=== PATIENT | female | born 1995 | race American Indian/Alaskan Native ===

== ENCOUNTER 2019-02-17 08:36 | Inpatient (IN) | payer MEDICAID ==
[2019-02-17] MEDS ORDERED: MINERAL OIL PO PRN (09:22)
[2019-02-17] MEDS ORDERED: XYLOCAINE 2% INFILTRATI ONE (09:22)
[2019-02-17] MEDS ORDERED: BRETHINE IVP PRN (09:22)
[2019-02-17] MEDS ORDERED: SUBLIMAZE IV PRN (09:22)
[2019-02-17] MEDS ORDERED: BRETHINE SUB-Q PRN (09:22)
[2019-02-17 09:37] LABS: Hematocrit 36.6 % (30.3-42.9); Hemoglobin 11.9 gm/dl (10.1-14.3); Mean Corpuscular HGB Conc 32 % (30-34); Mean Corpuscular Volume 75 fl (79-97); Platelet Count 302 K/mm3 (140-440); Red Cell Distribution Width 15.4 % (13.2-15.2)
[2019-02-17] MEDS ORDERED: PITOCin/NS 20 UNIT/1000ML DRIP 20 UNITS/1,000 ML BAG IV SCH (10:00)
[2019-02-17] MEDS ORDERED: PITOCin/NS 30 UNIT/500ML 30 UNITS/500 ML BAG IV SCH (10:00)
--- NOTE | 2019-02-17 10:08 | History and Physical Report ---
History of Present Illness Date of examination: 02/17/19 Date of admission: 02/17/19 Chief complaint: Leaking fluid, contractions History of present illness: 23yo G 1 P 0 at 38 weeks 5 days here with c/o leaking clear fluids since 8:00am and UCs q2mins. She reports +FMs. She is a [employer] pt who initiated care at 9 weeks gestation. Her course has been complicated by abnormal pap smear (s/p COLPO), vit D deficiency (was supplemented), and anemia (on iron therapy). LABS: Opos, Antibody Screen neg, Pap Smear LGSIL/+HR HPV, RI, VDRL NR, HBsAg ne g, HIV neg, Diabetes Screen 102, GC/CT/Trich neg, GBS neg. 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 denies: smoking, alcohol abuse, prescription drug abuse, IV drug use - Obstetrical History Expected Date of Delivery: 02/26/19 Actual Gestation: 38 Week(s) 5 Day(s) : 1 Para: 0 Hx # Term Pregnancies: 0 Spontaneous Abortions: 0 Induced : 0 Number of Living Children: 0 Medications and Allergies Allergies Allergy/AdvReac Type Severity Reaction Status Date / Time No Known Allergies Allergy Unverified 02/17/19 09:22 Active Meds: Active Medications Butorphanol Tartrate (Stadol) 2 mg IV Q2H PRN PRN Reason: Pain , Severe (7-10) Ephedrine Sulfate (Ephedrine Sulfate) 10 mg IV Q2M PRN PRN Reason: Hypotension Fentanyl (Sublimaze) 100 mcg IV Q2H PRN PRN Reason: Labor Pain Oxytocin/Sodium Chloride (Pitocin/Ns 20 Unit/1000ml Drip) 20 units in 1,000 mls @ 125 mls/hr IV DIRECT CAT Oxytocin/Sodium Chloride (Pitocin/Ns 30 Unit/500ml) 30 units in 500 mls @ 0 mls/hr IV TITR CAT; Protocol Lactated Ringer's (Lactated Ringers) 1,000 mls @ 125 mls/hr IV DIRECT CAT Lidocaine (Xylocaine 2%) 20 ml INFILTRATI ONCE ONE Stop: 02/17/19 09:23 Mineral Oil (Mineral Oil) 30 ml PO QHS PRN PRN Reason: Constipation Terbutaline Sulfate (Brethine) 0.25 mg SUB-Q ONCE PRN PRN Reason: Hyperstimulation/Hypertonicity Terbutaline Sulfate (Brethine) 0.25 mg IVP ONCE PRN PRN Reason: Hyperstimulation/Hypertonicity Review of Systems All systems: negative - Vital Signs Vital signs: Vital Signs Pulse BP 88 124/73 02/17/19 08:57 02/17/19 08:57 Temp Pulse Resp BP Pulse Ox 97.6 F 88 124/73 02/17/19 09:10 02/17/19 08:57 02/17/19 08:57 - Obstetrical FHR: auscultation normal, category 1 FHR comments: baseline 130, moderate variability, 15x15 accels, no decels Uterine Contraction Monitor Mode: External Cervical Dilatation: 2.5 (per RN) Cervical Effacement Percentage: 50 (per RN) station: -1 (per RN) Uterine Contraction Frequency (min): 2-4 Uterine Contraction Pattern: Regular Results Result Diagrams: 02/17/19 08:15 Abnormal lab results 02/17/19 Range/Units 08:15 MCV 75 L (79-97) fl MCH 24 L (28-32) pg RDW 15.4 H (13.2-15.2) % All other labs normal. Assessment and Plan - Patient Problems (1) 38 weeks gestation of Current Visit: Yes Status: Acute (2) Spontaneous rupture of amniotic membranes Current Visit: Yes Status: Acute (3) Active labor at term Current Visit: Yes Status: Acute Plan to address problem: Admit to L&D with routine labor orders Start Oxytocin for labor augmentation, if indicated Anticipate vaginal delivery
[2019-02-17] MEDS: LACTATED RINGERS 1,000 ML IV SCH ×2 (12:31→17:38)
[2019-02-17] MEDS: STADOL IV PRN ×2 (12:32→14:33)
[2019-02-17] MEDS ORDERED: NARCAN 2 MG/2 ML IV PRN (18:39)
[2019-02-17] MEDS ORDERED: SUBLIMAZE ONE (18:40)
[2019-02-17] MEDS ORDERED: MARCAINE 0.25% INFILTRATI ONE (18:57)
[2019-02-17] MEDS ORDERED: fentaNYL-BUPIV 2 MCG/ML-0.125% 200 MCG/100 ML BAG EPIDURAL SCH (19:00)
--- NOTE | 2019-02-17 19:21 | Anesthesia Consultation ---
Anesthesia Consult and Med Hx Date of service: 02/17/19 - Airway Anesthetic Teeth Evaluation: Good ROM Head & Neck: Adequate Mental/Hyoid Distance: Adequate Mallampati Class: Class II Intubation Access Assessment: Good - Pulmonary Exam CTA: Yes - Cardiac Exam Cardiac Exam: RRR - Pre-Operative Health Status ASA Pre-Surgery Classification: ASA2, Emergency Proposed Anesthetic Plan: Epidural - Pulmonary Hx Asthma: No - Cardiovascular System Hx Hypertension: No - Central Nervous System Hx Seizures: No Hx Psychiatric Problems: No - Endocrine Hx Renal Disease: No Hx Hypothyroidism: No Hx Hyperthyroidism: No - Hematic Hx Anemia: No Hx Sickle Cell Disease: No
--- NOTE | 2019-02-18 00:33 | Progress Note ---
Assessment and Plan - Patient Problems (1) 38 weeks gestation of Current Visit: Yes Status: Acute (2) Active labor at term Current Visit: Yes Status: Acute Plan to address problem: Continue current management Patient positioned to high-kern's to labor down Restart Oxytocin @ 1 mu/min for labor augmentation Anticipate vaginal delivery (3) Prolonged spontaneous rupture of membranes Current Visit: Yes Status: Acute Plan to address problem: 16 hours s/p SROM Increase in FHR baseline Oral maternal temperature 98.1 Start Ampicillin 2gm IV q6hr Subjective - Subjective Date of service: 02/18/19 Principal diagnosis: IUP @ 38 weeks; SROM Interval history: 23yo G 1 P 0 at 38 weeks 5 days here with c/o leaking clear fluids since 8:00am and UCs q2mins. She reports +FMs. She is a [employer] pt who initiated care at 9 weeks gestation. Her course has been complicated by abnormal pap smear (s/p COLPO), vit D deficiency (was supplemented), and anemia (on iron therapy). LABS: Opos, Antibody Screen neg, Pap Smear LGSIL/+HR HPV, RI, VDRL NR, HBsAg neg, HIV neg, Diabetes Screen 102, GC/CT/Trich neg, GBS neg. Patient reports: movement normal, other (reports satisfactory pain relief with epidural anesthesia), no new complaints Objective - Vital Signs Vital Signs: Vital Signs - 12hr 02/17/19 02/17/19 02/17/19 12:32 14:15 15:33 Temperature 97.9 F Pulse Rate Respiratory 18 14 Rate Blood Pressure O2 Sat by Pulse Oximetry 02/17/19 02/17/19 02/17/19 16:25 16:36 18:00 Temperature 97.9 F 97.0 F L Pulse Rate 77 Respiratory Rate Blood Pressure 137/78 O2 Sat by Pulse Oximetry 02/17/19 02/17/19 02/17/19 18:57 18:58 19:00 Temperature Pulse Rate 98 H 84 Respiratory Rate Blood Pressure 144/82 O2 Sat by Pulse 100 84 Oximetry 02/17/19 02/17/19 02/17/19 19:01 19:02 19:03 Temperature Pulse Rate 89 83 80 Respiratory Rate Blood Pressure 139/72 135/73 O2 Sat by Pulse 97 Oximetry 02/17/19 02/17/19 02/17/19 19:05 19:06 19:07 Temperature Pulse Rate 96 H 87 78 Respiratory Rate Blood Pressure 136/69 O2 Sat by Pulse 89 96 Oximetry 02/17/19 02/17/19 02/17/19 19:08 19:09 19:12 Temperature Pulse Rate 78 190 H 91 H Respiratory Rate Blood Pressure 154/76 159/84 131/62 O2 Sat by Pulse 95 Oximetry 02/17/19 02/17/19 02/17/19 19:13 19:15 19:17 Temperature Pulse Rate 75 83 94 H Respiratory Rate Blood Pressure 138/73 125/61 107/58 O2 Sat by Pulse 94 97 Oximetry 02/17/19 02/17/19 02/17/19 19:19 19:21 19:22 Temperature Pulse Rate 83 75 79 Respiratory Rate Blood Pressure 119/62 105/57 O2 Sat by Pulse 93 94 Oximetry 02/17/19 02/17/19 02/17/19 19:25 19:27 19:28 Temperature Pulse Rate 70 89 92 H Respiratory Rate Blood Pressure 152/85 O2 Sat by Pulse 94 100 Oximetry 02/17/19 02/17/19 02/17/19 19:29 19:31 19:32 Temperature Pulse Rate 100 H 103 H 110 H Respiratory Rate Blood Pressure 130/69 120/62 O2 Sat by Pulse 97 Oximetry 02/17/19 02/17/19 02/17/19 19:34 19:35 19:37 Temperature Pulse Rate 100 H 85 109 H Respiratory Rate Blood Pressure 133/74 123/64 O2 Sat by Pulse 99 Oximetry 02/17/19 02/17/19 02/17/19 19:38 19:39 19:41 Temperature Pulse Rate 122 H 72 66 Respiratory Rate Blood Pressure 144/68 131/68 126/65 O2 Sat by Pulse Oximetry 02/17/19 02/17/19 02/17/19 19:42 19:43 19:45 Temperature Pulse Rate 72 76 80 Respiratory Rate Blood Pressure 125/59 123/61 O2 Sat by Pulse 98 Oximetry 02/17/19 02/17/19 02/17/19 19:47 19:49 19:51 Temperature Pulse Rate 75 80 86 Respiratory Rate Blood Pressure 120/61 117/58 126/67 O2 Sat by Pulse 100 Oximetry 02/17/19 02/17/19 02/17/19 19:52 19:53 19:55 Temperature Pulse Rate 75 76 80 Respiratory Rate Blood Pressure 130/68 124/65 O2 Sat by Pulse 100 Oximetry 02/17/19 02/17/19 02/17/19 19:57 19:59 20:01 Temperature Pulse Rate 72 76 76 Respiratory Rate Blood Pressure 129/68 125/67 131/70 O2 Sat by Pulse 99 Oximetry 02/17/19 02/17/19 02/17/19 20:02 20:03 20:05 Temperature Pulse Rate 70 76 83 Respiratory Rate Blood Pressure 126/70 130/71 O2 Sat by Pulse 99 Oximetry 02/17/19 02/17/19 02/17/19 20:07 20:09 20:11 Temperature Pulse Rate 79 76 93 H Respiratory Rate Blood Pressure 129/69 131/71 134/75 O2 Sat by Pulse 100 Oximetry 02/17/19 02/17/19 02/17/19 20:12 20:13 20:16 Temperature Pulse Rate 82 99 H 100 H Respiratory Rate Blood Pressure 131/74 107/80 O2 Sat by Pulse 100 Oximetry 02/17/19 02/17/19 02/17/19 20:17 20:18 20:22 Temperature Pulse Rate 92 H 88 83 Respiratory Rate Blood Pressure 106/58 O2 Sat by Pulse 100 100 Oximetry 02/17/19 02/17/19 02/17/19 20:27 20:32 20:37 Temperature Pulse Rate 73 74 85 Respiratory Rate Blood Pressure O2 Sat by Pulse 100 100 100 Oximetry 02/17/19 02/17/19 02/17/19 20:42 20:47 20:52 Temperature Pulse Rate 77 71 79 Respiratory Rate Blood Pressure O2 Sat by Pulse 100 100 99 Oximetry 02/17/19 02/17/19 02/17/19 20:57 21:02 21:07 Temperature Pulse Rate 75 66 72 Respiratory Rate Blood Pressure O2 Sat by Pulse 100 100 100 Oximetry 02/17/19 02/17/19 02/17/19 21:12 21:14 21:17 Temperature Pulse Rate 69 90 70 Respiratory Rate Blood Pressure O2 Sat by Pulse 100 91 99 Oximetry 02/17/19 02/17/19 02/17/19 21:22 21:27 21:32 Temperature Pulse Rate 76 83 70 Respiratory Rate Blood Pressure O2 Sat by Pulse 100 100 100 Oximetry 08/05/19 08/05/19 08/05/19 21:37 21:42 21:43 Temperature Pulse Rate 74 76 74 Respiratory Rate Blood Pressure 114/67 O2 Sat by Pulse 98 100 Oximetry 02/17/19 02/17/19 02/17/19 21:47 21:52 21:57 Temperature Pulse Rate 72 94 H 84 Respiratory Rate Blood Pressure O2 Sat by Pulse 100 100 100 Oximetry 02/17/19 02/17/19 02/17/19 22:02 22:07 22:12 Temperature Pulse Rate 72 81 76 Respiratory Rate Blood Pressure O2 Sat by Pulse 99 99 99 Oximetry 02/17/19 02/17/19 02/17/19 22:13 22:17 22:22 Temperature Pulse Rate 78 76 81 Respiratory Rate Blood Pressure 112/64 O2 Sat by Pulse 100 99 Oximetry 02/17/19 02/17/19 02/17/19 22:27 22:32 22:37 Temperature Pulse Rate 80 77 73 Respiratory Rate Blood Pressure O2 Sat by Pulse 99 99 99 Oximetry 02/17/19 02/17/19 02/17/19 22:42 22:47 22:52 Temperature Pulse Rate 92 H 89 90 Respiratory Rate Blood Pressure 157/70 O2 Sat by Pulse 100 99 99 Oximetry 02/17/19 02/17/19 02/17/19 22:57 23:02 23:07 Temperature Pulse Rate 103 H 83 88 Respiratory Rate Blood Pressure O2 Sat by Pulse 100 99 99 Oximetry 02/17/19 02/17/19 02/17/19 23:12 23:17 23:22 Temperature Pulse Rate 83 87 97 H Respiratory Rate Blood Pressure 116/70 O2 Sat by Pulse 100 99 99 Oximetry 02/17/19 02/17/19 02/17/19 23:27 23:32 23:37 Temperature Pulse Rate 85 85 85 Respiratory Rate Blood Pressure O2 Sat by Pulse 99 100 100 Oximetry 02/17/19 02/17/19 02/17/19 23:43 23:48 23:51 Temperature Pulse Rate 87 92 H 88 Respiratory Rate Blood Pressure 126/76 O2 Sat by Pulse 100 99 Oximetry 02/17/19 02/18/19 02/18/19 23:56 00:01 00:06 Temperature Pulse Rate 86 95 H 103 H Respiratory Rate Blood Pressure O2 Sat by Pulse 99 100 100 Oximetry 02/18/19 02/18/19 02/18/19 00:11 00:16 00:21 Temperature Pulse Rate 96 H 90 88 Respiratory Rate Blood Pressure O2 Sat by Pulse 99 100 100 Oximetry 02/18/19 00:26 Temperature Pulse Rate 73 Respiratory Rate Blood Pressure O2 Sat by Pulse 100 Oximetry - Exam FHR: category 2 FHR comments: baseline 155, moderate variability, + accels, variable & occasional prolonged decel with pushing Cervical Dilatation: 10 Cervical Effacement Percentage: 100 station: +1 Uterine Contraction Pattern: Regular - Labs Labs: Abnormal Labs 02/17/19 08:15 MCV 75 L MCH 24 L RDW 15.4 H Laboratory Results - last 24 hr 02/17/19 02/17/19 02/17/19 08:15 08:15 08:15 WBC 8.6 RBC 4.90 Hgb 11.9 Hct 36.6 MCV 75 L MCH 24 L MCHC 32 RDW 15.4 H Plt Count 302 RPR Nonreactive Blood Type O POSITIVE Antibody Screen Negative
[2019-02-18] MEDS: AMPICILLIN/NS 2 GM/100 ML 2 GM/100 ML BAG IV SCH ×4 (01:21→18:03)
--- NOTE | 2019-02-18 04:17 | Procedure Note ---
OB Delivery Note - Delivery Date of Delivery: 02/18/19 (03:45) Surgeon: DOUG GHOSH (PACO) Estimated blood loss: 100cc - Vaginal Delivery presentation: vertex Delivery position: OA Intrapartum events: mult.variable deceleratio Delivery induction: none Delivery augmentation: pitocin Delivery monitor: external FHT, external uterine Route of delivery: Delivery placenta: spontaneous (03:52) Delivery cord: 3 umbilical vessels Episiotomy: none Delivery laceration: none Anesthesia: epidural Delivery comments: of a vigorous term 6 lbs 15 oz female on 02/18/19 @ 03:45. Baby placed [id number] on maternal abdomen. After 3 mins, umbilical cord double-clamped by PACO Ghosh and cut by FOB. Cord blood collected. Spontaneous delivery of placenta, Sussy-side presenting @ 03:52. Small lochia present. Fundal massage and IV Pitocin bolus initiated. Fundus F/ML/U-2. Placenta intact; was discarded. Perineum intact. No lacerations present. Mom and baby in stable condition. - A at 1 minute: 8 at 5 minutes: 9 Infant Gender: Female (6 lbs 15 oz (3133 gm); 18 in)
[2019-02-18] MEDS ORDERED: TYLENOL PO PRN (04:19)
[2019-02-18] MEDS ORDERED: LANSINOH TP PRN (04:19)
[2019-02-18] MEDS ORDERED: TUCKS PAD TP PRN (04:19)
[2019-02-18] MEDS ORDERED: DULCOLAX PR PRN (04:19)
[2019-02-18] MEDS ORDERED: PHENERGAN PR PRN (04:19)
[2019-02-18] MEDS ORDERED: MILK OF MAGNESIA PO PRN (04:19)
[2019-02-18] MEDS ORDERED: BENADRYL PO PRN (04:19)
[2019-02-18] MEDS ORDERED: ZOFRAN IV PRN (04:19)
[2019-02-18] MEDS ORDERED: PHENERGAN PO PRN (04:19)
[2019-02-18] MEDS ORDERED: IBUPROFEN PO SCH (05:00)
[2019-02-18] MEDS ORDERED: SODIUM CHLORIDE FLUSH SYRINGE 10 ML IV PRN (05:00)
[2019-02-18] MEDS: IBUPROFEN PO SCH ×2 (06:35→12:49)
[2019-02-18] MEDS: NORCO 5/325 PO PRN ×3 (09:59→21:55)
[2019-02-18] MEDS: PRENATAL VITAMIN PO SCH (09:59)
[2019-02-18] MEDS: FEOSOL PO SCH (09:59)
--- NOTE | 2019-02-18 17:48 | Post Anesthesia Evaluation ---
- Post Anesthesia Evaluation Patient Participated: Yes Airway Patent: Yes Stable Respiratory Function: Yes Nausea/Vomiting: No Temp > 96.8F: Yes Pain Manageable: Yes Adequeate Hydration: Yes Anesthesia Complications: No Block Receding Appropriately: Yes Patient on Ventilator: No
[2019-02-19 06:50] LABS: Hematocrit 28.5 % (30.3-42.9); Hemoglobin 9.1 gm/dl (10.1-14.3)
[2019-02-19] MEDS: IBUPROFEN PO SCH ×4 (09:56→20:16)
[2019-02-19] MEDS: PRENATAL VITAMIN PO SCH (09:56)
[2019-02-19] MEDS: FEOSOL PO SCH ×3 (09:58→21:18)
--- NOTE | 2019-02-19 13:46 | Progress Note ---
Assessment and Plan A: PP Day #1 Asymptomatic Anemia P: Follow Routine Orders FeSO4 PO BID; Continue at home D/C Home in the AM RTO in 6 Weeks Subjective - Subjective Date of service: 02/19/19 Principal diagnosis: IUP @ 38 weeks; SROM Patient reports: appetite normal, voiding normally, pain well controlled, flatus, ambulating normally Melvin: doing well Objective - Vital Signs Latest vital signs: Vital Signs Temp Pulse Resp BP BP Pulse Ox 02/19/19 07:30 97.2 F L 20 L 20 119/72 02/19/19 00:27 98.2 F 96 H 20 130/84 96 02/18/19 21:55 18 02/18/19 16:34 98.3 F 79 20 120/76 97 Intake and Output 02/18/19 02/19/19 02/19/19 22:59 06:59 14:59 Intake Total 480 360 Balance 480 360 Intake: Oral 120 Intake, Free Water 360 360 Other: Total, Intake Amount 120 Voiding Method Toilet # Voids Void 2 - Exam Breasts: Present: normal Cardiovascular: Present: Regular rate Lungs: Present: Clear to auscultation, Normal air movement Abdomen: Present: normal appearance, soft, normal bowel sounds Uterus: Present: normal, firm, fundal height below umbilicus Extremities: Present: normal - Labs Labs: Abnormal lab results 02/19/19 Range/Units 04:53 Hgb 9.1 L (10.1-14.3) gm/dl Hct 28.5 L D (30.3-42.9) %
--- NOTE | 2019-02-19 13:47 | Discharge Summary ---
Providers - Providers Date of Admission: 02/17/19 09:25 Date of discharge: 02/20/19 Attending physician: LUZ MARIA LUBIN MD Primary care physician: LUZ MARIA LUBIN MD Hospitalization Reason for admission: rupture of membranes Delivery: Episiotomy: none Laceration: none Other procedures: none complications: none Discharge diagnosis: IUP at term delivered [place] baby: female Condition at discharge: Good Disposition: DC-01 TO HOME OR SELFCARE Plan - Provider Discharge Summary Activity: routine, no sex for 6 weeks, no heavy lifting 4 weeks, no strenuous exercise Diet: routine Instructions: routine Additional instructions: [] Smoking cessation referral if applicable(refer to patient education folder for contact #) [] Refer to [employer] Booklet Call your doctor immediately for: * Fever > 100.5 * Heavy vaginal bleeding ( >1 pad per hour) * Severe persistent headache * Shortness of breath * Reddened, hot, painful area to leg or breast * Drainage or odor from incision. * Keep incision clean and dry at all times and follow doctor's instructions regarding bathing/showering - Follow up plan Follow up: LUZ MARIA LUBIN MD [Primary Care Provider] - 6 Weeks
[2019-02-19] MEDS: NORCO 5/325 PO PRN (21:20)
[2019-02-20] MEDS: IBUPROFEN PO SCH ×2 (05:08)
[2019-02-20] MEDS ORDERED: BOOSTRIX IM ONE (06:00)
[2019-02-20 08:58] VITALS: BP 149/88
== END 2019-02-20 10:25 | disposition home or self-care (01) | DRG 775 ==
LOC: LD 08:36 → TRG 08:36 → LD 09:25 → OB 02-18 06:10
PROVIDERS: ADMIT Obstetrics & Gynecology; ATTEND Obstetrics & Gynecology
PROC: 10E0XZZ Delivery of Products of Conception, External Approach (ICD-10-PCS; principal; 2019-02-18)
PROC: 3E0R3BZ Introduction of Anesthetic Agent into Spinal Canal, Percutaneous Approach (ICD-10-PCS; 2019-02-18)
PROC: 00HU33Z Insertion of Infusion Device into Spinal Canal, Percutaneous Approach (ICD-10-PCS; 2019-02-18)
DX: O76 Abnormality in fetal heart rate and rhythm complicating labor and delivery (principal); Z37.0 Single live birth; Z3A.38 38 weeks gestation of pregnancy; O90.81 Anemia of the puerperium; D64.9 Anemia, unspecified
CPT/HCPCS: 36415; 59025; 85014; 85018; 85027; 86592; 86850; 86900; 86901; 90715; 96360; 96361; 96365; G0378; J0290; J0595; J2590; J3010; J7120